=== PATIENT | male | born 1945 | race Caucasian/White ===

== ENCOUNTER → 2020-08-17 | Outpatient (CLI) | payer MEDICARE, OTHER ==
--- NOTE | 2020-08-19 16:56 | RADIOLOGY REPORT (SQ) ---
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 L zak cancer. Small cell lung cancer. Initial staging. COMPARISON: CT chest, 07/13/2020. CT-guided biopsy, 07/20/2020. CT abdomen and pelvis, 08/15/2019. RADIONUCLIDE AND DOSE: [id number] mCi F18 FDG The route of agent administration: Intravenous FASTING BLOOD SUGAR: 110 mg/dl CONTRAST TYPE AND DOSE: No CT contrast given. TECHNIQUE: Blood glucose level was verified. Above dose of FDG was injected intravenously. 2-D seg mented attenuation correction images were obtained from the base of the skull to the midthighs. Nonc ontrast CT images were obtained for attenuation correction and fusion with emission images. CT image s were performed without oral or intravenous contrast and are not sensitive for parenchymal lesions. A series of overlapping emission PET images were obtained. Images reviewed and manipulated at [facility] work station by the radiologist. Images stored on PACS. LIMITATIONS: None. FINDINGS: HEAD AND NECK: No areas of abnormal metabolic activity in the soft tissues of the head and neck. CHEST: There is a hypermetabolic right lower lobe perihilar mass measuring 7.2 x 5.3 cm on axial imag es with SUV 10.8. Hypermetabolic subpleural mass just inferior and separate from the main mass measu res 8.0 X 5.1 cm with SUV 14.8. There is also a hypermetabolic subpleural nodule along the medial ri ght inferior pleura near the diaphragmatic surface measuring 2.3 x 2.3 cm with SUV 4.1. Enlarged hyp ermetabolic right hilar and mediastinal lymph nodes consistent with local metastases, for example the subcarinal node measures 4.4 x 4.1 cm with SUV 8.7. No left hilar adenopathy. No supraclavicular a denopathy or axillary adenopathy. Background severe pulmonary emphysema with pleural and parenchymal scarring at the lung apices and right pleural thickening. No other suspicious nodules. No focal co nsolidation. No pneumothorax. ABDOMEN AND PELVIS: No areas of abnormal metabolic activity in the abdomen or pelvis. Expected physi ologic activity is present in the genitourinary system and bowel. Background hepatic activity SUV 3. 1. The previously described hepatic lesions are not well visualized on noncontrast CT and are not de monstrated to be hypermetabolic however may be below threshold for PET detection. PROXIMAL LOWER EXTREMITIES: No areas of abnormal metabolic activity in the soft tissues of the lower extremities. BONES: No abnormal metabolic activity in the visualized skeleton. ADDITIONAL CT FINDINGS: Cholelithiasis. Colonic diverticulosis without evidence of diverticulitis. OTHER: No other significant findings. IMPRESSION: 1. Hypermetabolic right hilar mass with pleural based metastases. Mediastinal and right hilar lympha denopathy consistent with local metastases. No evidence of distant metastases in the abdomen or pelv is. Previously described liver lesions are not well visualized on noncontrast CT and do not demonstr ate hypermetabolic activity, however may be too small for reliable PET detection. Consider further e valuation with contrast-enhanced MRI of the liver if clinically indicated. 2. Cholelithiasis. 3. Colonic diverticulosis without evidence of diverticulitis. TECHNICAL DOCUMENTATION: JOB ID: [id number] 2010 [employer]- All Rights Reserved Reading location - IP/workstation name: [email or web address]
== END ==
LOC: RAD 08:49
PROVIDERS: ATTEND Internal Medicine
DX: C34.90 Malignant neoplasm of unspecified part of unspecified bronchus or lung (principal); C78.2 Secondary malignant neoplasm of pleura; R59.1 Generalized enlarged lymph nodes
CPT/HCPCS: 78815; A9552

== ENCOUNTER → 2020-08-23 | Outpatient (CLI) | payer MEDICARE, OTHER ==
--- NOTE | 2020-08-23 16:51 | RADIOLOGY REPORT (SQ) ---
EXAM DESCRIPTION: MRI HEAD COMBO IMAGES COMPLETED DATE/TIME: 08/23/2020 10:41 am REASON FOR STUDY: MALIGNANT NEOPLASM OF LOWER LOBE, RIGHT BRONCHUS OR LUNG C34.31 MALIGNANT NEOPLAS M OF LOWER LOBE, RIGHT BRONCHUS OR L COMPARISON: None. TECHNIQUE: Multiplanar imaging includes noncontrasted T1, T2, FLAIR, Diffusion with ADC map and post gadolinium contrast T1 sequences. Images stored on PACS. CONTRAST TYPE AND DOSE: 20 mL Prohance. RENAL FUNCTION: Not indicated. ACR Type II contrast agent associated with few, if any, unconfounded cases of NSF LIMITATIONS: None. FINDINGS: ANATOMY: No anomalies. Normal vascular flow voids. Pituitary fossa normal. CSF SPACES: Atrophy-induced prominence of CSF spaces and ventricles. CEREBRUM: High-signal intensity lesions scattered throughout the white matter on FLAIR imaging with d istribution suggesting chronic micro-vascular ischemic change. No evidence of hemorrhage, mass, extra axial fluid collection or acute ischemic change. No enhancing lesions. POSTERIOR FOSSA: No signal alteration. No hemorrhage. No edema, masses, or mass effect. Internal ke tory canals, cerebello-pontine angles, mastoids normal. No enhancing lesions. ORBITS: No masses. Globes normal. PARANASAL SINUSES: No fluid levels. Mucosa normal. DIFFUSION: Normal. No evidence of recent infarct. OTHER: No other significant finding. IMPRESSION: ATROPHY AND CHRONIC MICRO-VASCULAR ISCHEMIC CHANGES. NO ENHANCING LESIONS. NO ACUTE FI NDINGS. EVIDENCE OF ACUTE STROKE: NO. TECHNICAL DOCUMENTATION: JOB ID: [id number] 2010 [employer]- All Rights Reserved Reading location - IP/workstation name: [email or web address]
== END ==
LOC: RAD 09:42
PROVIDERS: ATTEND Internal Medicine
DX: C34.31 Malignant neoplasm of lower lobe, right bronchus or lung (principal)
CPT/HCPCS: 82565; 70553; A9576